=== PATIENT | female | born 1990 | race Caucasian/White ===

== ENCOUNTER 2021-08-02 14:38 | Inpatient (IN) ==
[2021-08-02 16:28] LABS: Mean Corpuscular Hgb Conc 33.1 g/dL (32-36); Mean Platelet Volume 9.1 fL (7.4-10.4); Platelet Count 345 K/uL (130-400)
[2021-08-02] MEDS ORDERED: SODIUM CHLORIDE 0.9% 1000ML 500 ML IV ONE (16:49)
[2021-08-02 16:52] LABS: ALC (manual) 2.82 K/uL (1.2-3.4); ANC (manual) 4.37 K/uL (1.4-6.5); Basophils # (manual) 0.14 K/uL (0-0.2); Basophils % (manual) 1.7 %; Eosinophils # (manual) 0.21 K/uL (0-0.5); Eosinophils % (manual) 2.6 %; Hematocrit (blood only) 47.8 % (37-47); Hemoglobin 15.8 g/dL (12.0-16.0); Lymphocytes # (manual) 1.77 K/uL (1.2-3.4); Lymphocytes % (manual) 21.4 %; Mean Corpuscular Hemoglobin 29.7 pg (25-34); Mean Corpuscular Volume 89.8 fL (80-100); Monocytes % (manual) 8.5 %; Neutrophils # (manual) 4.37 K/uL (1.4-6.5); RBC Morphology Unremarkable; RDW Coefficient of Variation 13.2 % (11.5-14.5); RDW Standard Deviation 43.6 fL (36.4-46.3); Reactive Lymphocytes # (manual) 1.06 K/uL; Reactive Lymphocytes % (manual) 12.8 %; Red Blood Count 5.32 M/uL (4.2-5.4); White Blood Count 8.25 K/uL (4.8-10.8)
[2021-08-02 16:54] LABS: Albumin Globulin Ratio 1.2 (0.9-2); Albumin Level 4.1 gm/dl (3.4-5.0); BUN Creatinine Ratio 13.1 (10-20); Bilirubin,Total 0.7 mg/dl (0.2-1.0); Calcium 9.6 mg/dl (8.5-10.1); Creatinine Clr Calc Pharmacy 34.5 ml/min; Est GFR (African American) 107.3 ml/min; Est GFR (Non-African American) 92.6 ml/min; Globulin 3.3 gm/dl (2.5-4.0); Potassium 3.4 mmol/L (3.5-5.1); Total Protein 7.4 gm/dl (6.0-8.3)
--- NOTE | 2021-08-02 16:54 | XRay Report ---
KUB CLINICAL HISTORY: constipation COMPARISON STUDY: None. FINDINGS: An 8 mm right upper quadrant calcification is present. Bowel gas pattern is normal. Moderat e amount stool within the rectum is noted. There is a mild amount stool within the colon. Incidental note is made of severe scoliosis of the visualized spine. 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 IMPRESSION: 1. No evidence for a bowel obstruction. 2. Moderate amount of stool within the rectum. Mild amount stool within the colon. 3. 8 mm right upper quadrant calcification. This could reflect a gallstone within the left likely mili al calculus. 4. Scoliosis and right dislocation of the right hip. ACT 112: Negative or not required by law. Electronically signed by: Kalpesh Lester M.D. 08/02/2021 4:52 PM
[2021-08-02] MEDS ORDERED: D5W AND 1/2NSS 1,000 ML IV SCH (17:30)
[2021-08-02 17:36] LABS: Appearance Urine Cloudy (Clear); Bacteria Urine Automated Negative (Negative); Blood Urine 3+ (Negative); Color Urine Dark Yellow; Epithelial Cell Urine Auto >30 /lpf (0-5); Glucose Urine UA Negative (Negative); Ketones Urine Trace (Negative); Leukocyte Esterase Urine Negative (Negative); Nitrite Urine Negative (Negative); Protein Urine 2+ (Negative); Specific Gravity Urine 1.026 (1.000-1.030); Urobilinogen Urine Negative (Negative)
[2021-08-02 17:37] LABS: Bilirubin Urine 1+ (Negative)
--- NOTE | 2021-08-02 17:49 | Emergency Department Note ---
Impression & Plan Acute hypernatremia, Cerebral palsy, Hematuria, Nephrolithiasis ED Provider Note INFORMANT: Mother ED PROVIDER(S): Shawn Hickman MD CHIEF COMPLAINT: Constipation PLAN: Disposition: Admitted Condition: Good Outpatient prescription management: none Referral: None MEDICAL DECISION MAKING: Patient presented to the emergency department because of concerns about constipation or possible dehydration. Mom states the child was irritable. Physical examination was performed. Vital signs stable. Her CP makes history and physical difficult. The patient did not appear to have any peritoneal findings on examination. A work-up was initiated. A KUB was performed. Moderate stool noted but a large calcification was noted in the right upper quadrant. A urinalysis was performed. Blood work obtained. The patient was hypernatremic with a sodium of 151. The patient's urinalysis did show blood. CT imaging was ordered. Given the patient's hyponatremia I did discuss this with the ED pharmacist. We did calculate the patient's fluid requirement and to slowly drop her sodium she was given D5 half-normal saline. CT imaging did show a large stone in the right renal pelvis without hydronephrosis. This may be explaining her irritability and the blood in the urine. Further management in the hospital will be necessary. [facility] Patient was evaluated in the ER and admitted for further management. Triage Nursing notes reviewed and agree them. Vital Signs: reviewed and remarkable for no significant abnormalities Differential diagnosis: Infection, dehydration, metabolic abnormality, hypo/hyperglycemia, electrolyte disturbance, anemia, constipation, toxicologic, neurologic, as well as other pathologies. Diagnostics interpreted by me: ECG: none Cardiac Monitoring: none Imaging studies: KUB and CT as above. HPI: The patient is a 30 year old female with history of CP who presents to the Emergency Room with her mother because of being irritable. She has had decreased bowel movements over the last several days. Patient is nonverbal. Mother states her mood waxes and wanes. She has been trying to orally hydrate her and feed her. She has been in consultation with her primary for feeding tube placement. Mother denies any fevers or cough. No respiratory difficulty. There is a fluid going around the family but the patient has not exhibited any other symptoms. History is limited secondary to patient's severe CP. ROS: See above HPI for pertinent positives & negatives. ROS limited secondary to CP. PAST MEDICAL HISTORY:See Below , CP PAST SURGICAL HISTORY:See Below, FAMILY HISTORY:See Below SOCIAL HISTORY:See Below, lives with family HOME MEDICATIONS:See Below ALLERGIES:See Below VITALS:See Below PHYSICAL EXAMINATION: GENERAL: Awake, alert, nontoxic-appearing, in no distress HENT: atraumatic. Oropharynx unremarkable except for dry mucous membranes and poor dentition EYES: Normal conjunctiva. Sclera non-icteric. NECK: Inspection normal. Non-tender. Supple. No nuchal rigidity. FROM. No masses. RESPIRATORY: Clear to auscultation. No wheezes. No rales. Normal respiratory effort. CARDIAC: Borderline tachycardic rate. Normal rhythm. No murmurs. No rubs. Extremities warm and well perfused. Pulses equal. No JVD. GI: Soft, non-distended. No apparent tenderness to palpation. No rebound or guarding. No masses. RECTAL: Deferred. MUSCULOSKELETAL: Atraumatic. Contractures of the upper extremities noted. Generalized muscular atrophy. No obvious CVA tenderness. LOWER EXTREMITIES: Calves are equal size bilaterally and non-tender. No edema. No discoloration. NEURO: CP sensorium. Nonverbal. Does not follow commands. SKIN: No rash or jaundice noted. Shawn Hickman MD Past Med/Surg History Medical History (Updated 08/02/21 @ 21:49 by Shawn Hickman MD) Cerebral palsy non-verbal Cerebral palsy Cyst of neck History of seizures hx years ago/controlled without anticonvulsants Surgical History History of hip surgery LEFT Lazy eye repair Social History Smoking Status: Never smoker Second Hand Exposure: No; Hx Alcohol Use: No Hx Substance Use: No Preferred Language: Congolese Communication Ability: Impaired Aircraft Mechanic Required: No Beliefs That Will Affect Care: None marital status: Single Current Living Situation: Family current occupational status: disabled Feels Safe at Home: Yes Assistive Devices: Wheelchair Allergies Allergies Allergy/AdvReac Type Severity Reaction Status Date / Time No Known Allergies Allergy Verified 08/02/21 15:38 Home Meds Home Medications Medication Instructions Recorded Confirmed multivitamin (Daily Multi-Vitamin) 1 tab PO DAILY 03/25/19 08/02/21 Previous Rx's Medication Instructions Recorded Wheelchair (Manual) #1 ea 02/03/21 Results & Data (ED) Vital Signs Vital Signs - 24 hr 08/02/21 14:46 08/02/21 16:39 08/02/21 18:37 Temperature 36.6 C Temperature Source Temporal Artery Scan Pulse Rate 98 H Pulse Rate [Left Finger] 83 Pulse Rhythm [Left Finger] Regular Respiratory Rate 22 15 18 Respiratory Effort / Characteristics Non-Labored Blood Pressure [Left Arm] 97/65 L 97/65 L Blood Pressure Mean [Left Arm] 75 75 Pulse Oximetry 97 96 Oxygen Delivery Method Room Air Room Air Sepsis Recent Fever Within 48 Hours No Sepsis New/Unexplained Change in Mental Status N/A Sepsis Action Taken by Nursing No Action Required 08/02/21 20:00 Temperature Temperature Source Pulse Rate Pulse Rate [Left Finger] 81 Pulse Rhythm [Left Finger] Respiratory Rate 17 Respiratory Effort / Characteristics Non-Labored Blood Pressure [Left Arm] 106/73 Blood Pressure Mean [Left Arm] 84 Pulse Oximetry 96 Oxygen Delivery Method Room Air Sepsis Recent Fever Within 48 Hours Sepsis New/Unexplained Change in Mental Status Sepsis Action Taken by Nursing Laboratory Data Result diagrams: 08/02/21 16:17 08/02/21 16:17 Lab Results 08/02/21 08/02/21 08/02/21 Range/Units 16:17 16:17 16:20 WBC 8.25 (4.8-10.8) K/uL RBC 5.32 (4.2-5.4) M/uL Hgb 15.8 (12.0-16.0) g/dL Hct 47.8 H (37-47) % MCV 89.8 (80-100) fL MCH 29.7 (25-34) pg MCHC 33.1 (32-36) g/dL RDW Std Deviation 43.6 (36.4-46.3) fL RDW Coeff of Mat 13.2 (11.5-14.5) % Plt Count 345 (130-400) K/uL MPV 9.1 (7.4-10.4) fL Neutrophils % (Manual) 53.0 % Lymphocytes % (Manual) 21.4 % Reactive Lymphs % (Man) 12.8 % Monocytes % (Manual) 8.5 % Eosinophils % (Manual) 2.6 % Basophils % (Manual) 1.7 % Neutrophils # (Manual) 4.37 (1.4-6.5) K/uL Total Absolute Neuts 4.37 (1.4-6.5) K/uL Lymphocytes # (Manual) 1.77 (1.2-3.4) K/uL Reactive Lymphs # 1.06 K/uL Total Abs Lymphocytes 2.82 (1.2-3.4) K/uL Monocytes # (Manual) 0.70 H (0.11-0.59) K/uL Eosinophils # (Manual) 0.21 (0-0.5) K/uL Basophils # (Manual) 0.14 (0-0.2) K/uL RBC Morphology Unremarkable Sodium 151 H (136-145) mmol/L Potassium 3.4 L (3.5-5.1) mmol/L Chloride 110 H (98-107) mmol/L Carbon Dioxide 34 H (21-32) mmol/L Anion Gap 7 (3-11) BUN 11 (6-23) mg/dl Creatinine 0.84 (0.6-1.2) mg/dl Est Cr Clr Drug Dosing 34.5 ml/min Est GFR ( Amer) 107.3 ml/min Est GFR (Non-Af Amer) 92.6 ml/min BUN/Creatinine Ratio 13.1 (10-20) Glucose 86 (70-99(Fasting)) mg/dl Calcium 9.6 (8.5-10.1) mg/dl Total Bilirubin 0.7 (0.2-1.0) mg/dl AST 27 (13-39) U/L ALT 28 (7-52) U/L Alkaline Phosphatase 80 (34-104) U/L Total Protein 7.4 (6.0-8.3) gm/dl Albumin 4.1 (3.4-5.0) gm/dl Globulin 3.3 (2.5-4.0) gm/dl Albumin/Globulin Ratio 1.2 (0.9-2) Urine Color Urine Appearance (Clear) Urine pH (4.5-7.5) Ur Specific Sharon (1.000-1.030) Urine Protein (Negative) Urine Glucose (UA) (Negative) Urine Ketones (Negative) Urine Blood (Negative) Urine Nitrite (Negative) Urine Bilirubin (Negative) Urine Urobilinogen (Negative) Ur Leukocyte Esterase (Negative) Urine WBC (Auto) (0-5) /hpf Urine RBC (Auto) (0-4) /hpf U Hyaline Cast (Auto) (0-5) /lpf U Epithel Cells (Auto) (0-5) /lpf Urine Bacteria (Auto) (Negative) SARS-CoV-2, RNA, NAAT NEGATIVE (NEGATIVE) 08/02/21 Range/Units 17:24 WBC (4.8-10.8) K/uL RBC (4.2-5.4) M/uL Hgb (12.0-16.0) g/dL Hct (37-47) % MCV (80-100) fL MCH (25-34) pg MCHC (32-36) g/dL RDW Std Deviation (36.4-46.3) fL RDW Coeff of Mat (11.5-14.5) % Plt Count (130-400) K/uL MPV (7.4-10.4) fL Neutrophils % (Manual) % Lymphocytes % (Manual) % Reactive Lymphs % (Man) % Monocytes % (Manual) % Eosinophils % (Manual) % Basophils % (Manual) % Neutrophils # (Manual) (1.4-6.5) K/uL Total Absolute Neuts (1.4-6.5) K/uL Lymphocytes # (Manual) (1.2-3.4) K/uL Reactive Lymphs # K/uL Total Abs Lymphocytes (1.2-3.4) K/uL Monocytes # (Manual) (0.11-0.59) K/uL Eosinophils # (Manual) (0-0.5) K/uL Basophils # (Manual) (0-0.2) K/uL RBC Morphology Sodium (136-145) mmol/L Potassium (3.5-5.1) mmol/L Chloride (98-107) mmol/L Carbon Dioxide (21-32) mmol/L Anion Gap (3-11) BUN (6-23) mg/dl Creatinine (0.6-1.2) mg/dl Est Cr Clr Drug Dosing ml/min Est GFR ( Amer) ml/min Est GFR (Non-Af Amer) ml/min BUN/Creatinine Ratio (10-20) Glucose (70-99(Fasting)) mg/dl Calcium (8.5-10.1) mg/dl Total Bilirubin (0.2-1.0) mg/dl AST (13-39) U/L ALT (7-52) U/L Alkaline Phosphatase (34-104) U/L Total Protein (6.0-8.3) gm/dl Albumin (3.4-5.0) gm/dl Globulin (2.5-4.0) gm/dl Albumin/Globulin Ratio (0.9-2) Urine Color Dark Yellow Urine Appearance Cloudy A (Clear) Urine pH 6.0 (4.5-7.5) Ur Specific Sharon 1.026 (1.000-1.030) Urine Protein 2+ H (Negative) Urine Glucose (UA) Negative (Negative) Urine Ketones Trace H (Negative) Urine Blood 3+ H (Negative) Urine Nitrite Negative (Negative) Urine Bilirubin 1+ H (Negative) Urine Urobilinogen Negative (Negative) Ur Leukocyte Esterase Negative (Negative) Urine WBC (Auto) 10-30 H (0-5) /hpf Urine RBC (Auto) 10-30 H (0-4) /hpf U Hyaline Cast (Auto) 1-5 (0-5) /lpf U Epithel Cells (Auto) >30 H (0-5) /lpf Urine Bacteria (Auto) Negative (Negative) SARS-CoV-2, RNA, NAAT (NEGATIVE) Administered Medications Dextrose/Sodium Chloride (D5w And 1/2nss) 1,000 mls @ 85 mls/hr IV .[id number] [id number] Stop: 08/02/21 23:00 Last Admin: 08/02/21 17:33 Dose: 85 mls/hr Documented by: [id number] Discontinued Medications Sodium Chloride (Nss 1000ml) 500 mls @ 999 mls/hr IV .Q31M ONE Stop: 08/02/21 17:19 Last Admin: 08/02/21 17:33 Dose: Not Given Documented by: [id number] Imaging Data Radiologist's Impression: KUB X-Ray 08/02/21 15:36 KUB CLINICAL HISTORY: constipation COMPARISON STUDY: None. FINDINGS: An 8 mm right upper quadrant calcification is present. Bowel gas pattern is normal. Moderate amount stool within the rectum is noted. There is a mild amount stool within the colon. Incidental note is made of severe scoliosis of the visualized spine. There is chronic dislocation of the right hip with deformity of the right femoral head. IMPRESSION: 1. No evidence for a bowel obstruction. 2. Moderate amount of stool within the rectum. Mild amount stool within the colon. 3. 8 mm right upper quadrant calcification. This could reflect a gallstone within the left likely renal calculus. 4. Scoliosis and right dislocation of the right hip. ACT 112: Negative or not required by law. Electronically signed by: Kalpesh Lester M.D. 08/02/2021 4:52 PM Abdomen/Pelvis CT 08/02/21 17:49 CT OF THE ABDOMEN AND PELVIS WITHOUT CONTRAST CLINICAL HISTORY: possible right stone. Hematuria. hx of CP COMPARISON STUDY: KUB performed earlier today. TECHNIQUE: Axial images of the abdomen and pelvis were obtained without IV contrast. Images were reviewed in the axial, sagittal, and coronal planes. Automated exposure control was utilized for the study. A dose lowering technique was utilized adhering to the principles of ALARA. FINDINGS: Note is made of mild airspace opacities within the left lower lobe. No pneumatosis, free air or portal venous gas is present. Evaluation of the abdomen and pelvis is suboptimal given difficulty positioning. Chronic dislocation of the right hip is noted as well as scoliosis, partially imaged on this examination. No pneumatosis, free air or portal venous gas is present. Unenhanced images of liver, spleen, adrenal glands and pancreas are unremarkable. There is no hydronephrosis. Note is made of a 9 mm calculus within the right renal pelvis. There are no additional urinary calculi. There is no evidence for a bowel obstruction. The appendix is normal. Moderate amount of stool within the colon and rectum is present. There is no ascites. There is no lymphadenopathy. A few water attenuation left renal lesions are suboptimally assessed on this unenhanced exam but probably reflect cysts. IMPRESSION: 1. 9 mm right renal pelvis calculus. No ureteral calculi or hydronephrosis. 2. No bowel obstruction. Normal appendix. Moderate amount of stool within the colon and rectum. 3. Chronic dislocation of the right hip and thoracolumbar spine scoliosis, partially imaged. ACT 112: Negative or not required by law. Electronically signed by: Kalpesh Lester M.D. 08/02/2021 7:20 PM Discharge Plan Visit Data Chief Complaint: Constipation Stated Complaint: LIQUID DIET, NOT EATING WELL, CONSTIPATED ED Provider: Shawn Hickman Discharge Problem: Acute hypernatremia, Cerebral palsy, Hematuria, Nephrolithiasis Forms Stand Alone Forms: [employer] Prescriptions Prescriptions: No Action (DME) Wheelchair (Manual) Device See Rx Instructions .Route Qty: 1 RF: 0 multivitamin [Daily Multi-Vitamin] tablet 1 tab PO DAILY RF: 0 Referrals Referrals: Claudia Fair PA-C [Primary Care Provider] -
--- NOTE | 2021-08-02 19:21 | CT Scan Report ---
CT OF THE ABDOMEN AND PELVIS WITHOUT CONTRAST CLINICAL HISTORY: possible right stone. Hematuria. hx of CP COMPARISON STUDY: KUB performed earlier today. TECHNIQUE: Axial images of the abdomen and pelvis were obtained without IV contrast. Images were revi ewed in the axial, sagittal, and coronal planes. Automated exposure control was utilized for the abbie dy. A dose lowering technique was utilized adhering to the principles of ALARA. FINDINGS: Note is made of mild airspace opacities within the left lower lobe. No pneumatosis, free ai r or portal venous gas is present. Evaluation of the abdomen and pelvis is suboptimal given difficult y positioning. Chronic dislocation of the right hip is noted as well as scoliosis, partially imaged o n this examination. No pneumatosis, free air or portal venous gas is present. Unenhanced images of li aiden, spleen, adrenal glands and pancreas are unremarkable. There is no hydronephrosis. Note is made o f a 9 mm calculus within the right renal pelvis. There are no additional urinary calculi. There is no evidence for a bowel obstruction. The appendix is normal. Moderate amount of stool within the colon and rectum is present. There is no ascites. There is no lymphadenopathy. A few water attenuation left renal lesions are suboptimally assessed on this unenhanced exam but probably reflect cysts. IMPRESSION: 1. 9 mm right renal pelvis calculus. No ureteral calculi or hydronephrosis. 2. No bowel obstruction. Normal appendix. Moderate amount of stool within the colon and rectum. 3. Chronic dislocation of the right hip and thoracolumbar spine scoliosis, partially imaged. ACT 112: Negative or not required by law. Electronically signed by: Kalpesh Lester M.D. 08/02/2021 7:20 PM
--- NOTE | 2021-08-02 19:34 | History & Physical Report ---
Date of Service August 02, 2021 Assessment & Plan (1) Constipation: Plan: 30 y/o F w/ cerebral palsy (nonverbal) and not other PMhx who presents w/ a week of irritability and decreased PO intake likely secondary to chronic constipation, in the context of chronic malnutrition. Irritability x 1 week (mostly minimal appetite) secondary to constipation (moderate stool burden on CT) vs 9mm nephrolithiasis. There is lower suspicion for symptoms related to nephrolithiasis as imaging does not show hydronephrosis or ureteral stone. Patient's microscopic hematuria more likely from straight cath insertion as multiple attempts were required. - Dulcolax suppository x1. If needed, consider lactulose, senna, and saline enema. Proactive/strong bowel regimen approach recommended while inpatient as likely contributing to patient's discomfort. - Other differentials of malaise considered. UA w/ pyuria, but no obvious urinary symptoms; no abx indicated. CT abd mentioned mild airspace opacities within the left lower lobe. Patient does have higher than average aspiration risk, but in context of clear lungs and no hypoxia, aspiration pneumonitis lower on differential. - GI consult placed for evaluation of possible G tube. NPO after midnight. Otherwise, diet will be Boost shakes only and any other liquids given (e.g. for meds) should be nectar consistency. - If suspicion for symptomatic nephrolithiasis higher, consider urology consult. (2) Hypernatremia: Plan: 151 Na at admission. Likely represents free water deficit from decreased PO intake. D5 1/2 NSS at slightly < recommended rate to correct <0.5/hour. Follow BMP. (3) Cerebral palsy: Plan: Appears at baseline. Per mother, does not follow neurology and no recent hx of seizures. Not on medications for cerebral palsy. (4) Malnutrition: Plan: Per mother, 2.5 lb wt loss in past year. Overall, there has been concern about PO intake. In outpatient setting, discussion of consideration of tube feeds ongo ing, outpatient GI consult had been placed. Can Piler consulted to assess nutritional needs. (5) Poor dentition: Plan: Encourage dental f/u upon discharge from hospital. (6) Hypokalemia: Plan: Replete. Follow BMP. Plan: FEN: NPO. D5 1/2 NSS at 75/hr. When diet resumes, Boost shakes only. Dulce consistency for all other fluids. Aspiration precautions. code: Conditional: DNI. Allow CPR, defib, other ACLS meds. I had detailed discussion w/ mother regarding code status. ppx: SCDs only. Defer chemoppx in setting of lower risk and low body weight. dispo: med/surg ED hold History of Present Illness Chief Complaint: constipation and poor appetite Primary Care Provider: Claudia Fair PA-C 30 y/o F w/ cerebral palsy (nonverbal) and not other PMhx who presents for irritability x 1 week (mostly minimal appetite). This was worse on 07/31/21 (generally appeared uncomfortably. less energy, fussy). She has had chronic constipation issue, somewhat worsened as did not pass a large BM (passed 3 smaller BMs) even after dulcolax and saline enema. This was in contrast to past where patient had better success with these treatments. Patient is feeling better today. She was brought in today because of the week of persistent concerns mentioned above. Family had flu-like symptoms. Patient has not had covid vaccine. Per 08/02/21 PCP note, referred to outpatient GI for discussion of potential G tube in future should patient need it. Feeds via liquids only, mainly using bottled tube feed formulations. 2.5 lb wt loss in past year per mother. Cerebral palsy is stable, no recent seizures in years and not on any anticonvulsants. HPI limited by patient's baseline nonverbal status. Hx obtained from mother. Patient's covid test was negative. Allergies Allergy/AdvReac Type Severity Reaction Status Date / Time No Known Allergies Allergy Verified 08/02/21 15:38 Home Medications Medication Instructions Recorded Confirmed Type multivitamin (Daily Multi-Vitamin) 1 tab PO DAILY 03/25/19 08/02/21 History Wheelchair (Manual) #1 ea 02/03/21 07/26/21 Rx Past Med/Surg History Medical History (Updated 08/03/21 @ 01:03 by Semaj Hicks MD) Cerebral palsy non-verbal Cerebral palsy Cyst of neck History of seizures hx years ago/controlled without anticonvulsants Surgical History History of hip surgery LEFT Lazy eye repair Social History Smoking Status: Never smoker Second Hand Exposure: No; Do You Dip or Chew Tobacco: No; Hx Alcohol Use: No Hx Substance Use: No Preferred Language: Kazakh Communication Ability: Unable Registered Medical Assistant Required: No Beliefs That Will Affect Care: None marital status: Single Current Living Situation: Parent and Family current occupational status: disabled Other Information That Helps Us Care for You: No Feels Safe at Home: Yes Safety Concerns: Feels Safe At This Time Assistive Devices: Wheelchair Review of Systems Review of Systems: Unobtainable due to cognitive status (Baseline. Has cerebral palsy and is nonverbal. + some sinus/chest congestion but no cough. Mother denies other ROS that are not mentioned in the HPI.) Physical Exam Physical Exam: General: Was sleeping initially, but is alert. NAD. HEENT: Atraumatic, normocephalic. EOMI Pulm: CTAB anteriorly. Limited exam, no obvious adventitious sounds posteriorly. Some transmitted upper airway mucous, heard at neck. -wheezes, -rales, -rhonchi. No respiratory distress. Cardiac: RRR, -mrg. No LE edema. Abdominal: Nondistended, soft. She did wince briefly when palpating RLQ. No TTP on repeat exam. +BS. No R CVA ttp. Integ: Warm, dry, intact. Results & Data Results & Data ([facility]) Vital Signs (Past 12 Hours) Vital Signs slightly soft BPs. continue IV fluids. Temp Pulse Pulse Resp BP Pulse Ox 08/02/21 18:37 18 97/65 L 08/02/21 16:39 83 15 97/65 L 96 08/02/21 14:46 36.6 C 98 H 22 97 Laboratory Results wbc 8.25, stable. Hb 15.8, stable. K 3.4. Na 151. UA cloudy, 3+ blood, 1+ bili, 10-30 wbc, >30 epithelial cells. 08/02/21 16:17 08/02/21 16:17 Cardiac Enzymes 08/02/21 Range/Units 16:17 AST 27 (13-39) U/L CBC 08/02/21 Range/Units 16:17 WBC 8.25 (4.8-10.8) K/uL RBC 5.32 (4.2-5.4) M/uL Hgb 15.8 (12.0-16.0) g/dL Hct 47.8 H (37-47) % Plt Count 345 (130-400) K/uL Comprehensive Metabolic Panel 08/02/21 Range/Units 16:17 Sodium 151 H (136-145) mmol/L Potassium 3.4 L (3.5-5.1) mmol/L Chloride 110 H (98-107) mmol/L Carbon Dioxide 34 H (21-32) mmol/L BUN 11 (6-23) mg/dl Creatinine 0.84 (0.6-1.2) mg/dl Glucose 86 (70-99(Fasting)) mg/dl Calcium 9.6 (8.5-10.1) mg/dl AST 27 (13-39) U/L ALT 28 (7-52) U/L Alkaline Phosphatase 80 (34-104) U/L Total Protein 7.4 (6.0-8.3) gm/dl Albumin 4.1 (3.4-5.0) gm/dl Intake and Output 08/02/21 08/02/21 08/02/21 06:59 14:59 22:59 Other: Weight 23.4 kg Weight Measurement Method Built in [facility] Patient Weight 08/03/21 06:59 Weight 23.4 kg Diagnostic Findings KUB X-Ray 08/02/21 15:36 KUB CLINICAL HISTORY: constipation COMPARISON STUDY: None. FINDINGS: An 8 mm right upper quadrant calcification is present. Bowel gas pattern is normal. Moderate amount stool within the rectum is noted. There is a mild amount stool within the colon. Incidental note is made of severe scoliosis of the visualized spine. There is chronic dislocation of the right hip with deformity of the right femoral head. IMPRESSION: 1. No evidence for a bowel obstruction. 2. Moderate amount of stool within the rectum. Mild amount stool within the colon. 3. 8 mm right upper quadrant calcification. This could reflect a gallstone within the left likely renal calculus. 4. Scoliosis and right dislocation of the right hip. ACT 112: Negative or not required by law. Electronically signed by: Kalpesh Lester M.D. 08/02/2021 4:52 PM Abdomen/Pelvis CT 08/02/21 17:49 CT OF THE ABDOMEN AND PELVIS WITHOUT CONTRAST CLINICAL HISTORY: possible right stone. Hematuria. hx of CP COMPARISON STUDY: KUB performed earlier today. TECHNIQUE: Axial images of the abdomen and pelvis were obtained without IV contrast. Images were reviewed in the axial, sagittal, and coronal planes. Automated exposure control was utilized for the study. A dose lowering bruce hnique was utilized adhering to the principles of ALARA. FINDINGS: Note is made of mild airspace opacities within the left lower lobe. No pneumatosis, free air or portal venous gas is present. Evaluation of the abdomen and pelvis is suboptimal given difficulty positioning. Chronic dislocation of the right hip is noted as well as scoliosis, partially imaged on this examination. No pneumatosis, free air or portal venous gas is present. Unenhanced images of liver, spleen, adrenal glands and pancreas are unremarkable. There is no hydronephrosis. Note is made of a 9 mm calculus within the right renal pelvis. There are no additional urinary calculi. There is no evidence for a bowel obstruction. The appendix is normal. Moderate amount of stool within the colon and rectum is present. There is no ascites. There is no lymphadenopathy. A few water attenuation left renal lesions are suboptimally assessed on this unenhanced exam but probably reflect cysts. IMPRESSION: 1. 9 mm right renal pelvis calculus. No ureteral calculi or hydronephrosis. 2. No bowel obstruction. Normal appendix. Moderate amount of stool within the colon and rectum. 3. Chronic dislocation of the right hip and thoracolumbar spine scoliosis, partially imaged. ACT 112: Negative or not required by law. Electronically signed by: Kalpesh Lester M.D. 08/02/2021 7:20 PM ECG Additional Comments: No ecg obtained this admission. Code Status & VTE Plan Code Status conditional: DNI VTE Prophylaxis Plan VTE Prophylaxis will be ordered: Yes Supervising Physician Co-Signing Physician Notes Patient seen and examined, chart reviewed, case discussed with Dr. Hicks and I agree with the assessment and plan as outlined above. In brief, patient is a 30yo female with CP presenting with her mother with complaint of poor feeding, irritability and constipation. Mother feeds patient [email or web address] ankur but patient has not been taking as much oral ?need for feeding tube placement On exam patient is afebrile, HD stable, sleeping Skin - intact HEENT - dry mm Heart- +S1/S2, regular Lungs -CTA Abd - +BS, soft, NT/ND Ext - no edema, flexion contractures of UE and LE bilaterally Labs and images reviewed Assessment/Plan -IVF, oral nutrition as tolerated with assistance from patient's mother -GI consultation appreciated re: PEG tube placement -Slow Na correction with D5 1/2NSS -Remainder as above Resident Activity Tracking Resident Involvement: Resident Care Provided Care Provided: Adult Hospital Medicine
[2021-08-03] MEDS ORDERED: D5W AND 1/2NSS 1,000 ML IV SCH (00:47)
[2021-08-03] MEDS ORDERED: ONDANSETRON INJ 2 MG/ML 2 ML VIAL IV PRN (00:47)
[2021-08-03] MEDS: POTASSIUM CHLORIDE / WTR 10 MEQ/100 ML PLCT IV SCH ×2 (01:36→03:02)
[2021-08-03] MEDS ORDERED: bisacodyL 10 MG SUPP PR ONE (05:00)
--- NOTE | 2021-08-03 05:48 | Billing Data ---
Date of Service August 02, 2021 Coding Level of Care Code 88137 Initial Inpt Care Lvl 2
[2021-08-03 08:18] LABS: Basophils # (auto) 0.04 K/uL (0-0.2); Basophils % (auto) 0.6 %; Eosinophils # (auto) 0.33 K/uL (0-0.5); Hemoglobin 13.6 g/dL (12.0-16.0); Immature Granulocytes # (auto) 0.01 K/uL (0.00-0.02); Immature Granulocytes % (auto) 0.2 %; Lymphocytes # (auto) 3.02 K/uL (1.2-3.4); Lymphocytes % (auto) 45.5 %; Mean Corpuscular Hemoglobin 29.9 pg (25-34); Mean Corpuscular Hgb Conc 33.2 g/dL (32-36); Mean Corpuscular Volume 90.1 fL (80-100); Mean Platelet Volume 9.2 fL (7.4-10.4); Monocytes # (auto) 0.79 K/uL (0.11-0.59); Monocytes % (auto) 11.9 %; Neutrophils # (auto) 2.45 K/uL (1.4-6.5); Neutrophils % (auto) 36.8 %; Platelet Count 283 K/uL (130-400); RDW Coefficient of Variation 13.1 % (11.5-14.5); RDW Standard Deviation 42.7 fL (36.4-46.3); Red Blood Count 4.55 M/uL (4.2-5.4); White Blood Count 6.64 K/uL (4.8-10.8)
[2021-08-03 08:40] LABS: BUN Creatinine Ratio 14.9 (10-20); Calcium 8.2 mg/dl (8.5-10.1); Creatinine Clr Calc Pharmacy 43.2 ml/min; Est GFR (African American) 135.8 ml/min; Est GFR (Non-African American) 117.1 ml/min; Magnesium 1.8 mg/dl (1.7-2.4); Potassium 3.5 mmol/L (3.5-5.1)
[2021-08-03] MEDS ORDERED: POTASSIUM CHLORIDE 20 MEQ in LACTATED RINGER'S 1,000 ML IV SCH (10:00)
--- NOTE | 2021-08-03 10:50 | Hospitalist Progress Note ---
Date of Service August 03, 2021 Assessment & Plan (1) Malnutrition: Plan: 30 yo F Hx cerebral palsy, chronic malnutrition, constipation admitted for increased irritability and concern for worsening nutritional status. Malnutrition: Chronic issue, with chiefly liquid calories at home. Currently uses [employer] 1-1.5 cartons/day with 1 homemade milkshake (not enough fiber, fluids). Dietary onboard to ensure appropriate calorie intake, appreciate recommendations: Will transition to [employer] 2 cartons/day (total 660kcal, 32g protein, 10g fiber). Will add prune juice 4oz in 4oz water with homemade honey/maple syrup to thicken it. Thiamine 100mg IV BID while admitted. Repeat BMP, Phos, Mg in AM for refeeding labs. GI consulted and appreciate recommendations: Given malrotated torso and small abdomen concern for coiling of feeding tube in stomach. No feeding tube at this time; if frequent admissions for similar complaints will need evaluation for possible PEJ. Hypernatremia: Admitted with Na of 151, dark urine, poor fluid intake. Received D5 1/2NSS for several hours, with repeat Na of 142. Fluids transitioned to LR at 60cc/hr. Repeat BMP in AM. Constipation: Chronic, BMs q3 days. CTAP with evidence of moderate amount of stool within colon. Started Dulcolax while admitted, to continue when discharged. Goal of one soft formed BM daily. Code Status: Conditional Code; no intubation, other interventions okay FEN: LR at 60cc/hr with KCl 20meq within DVT ppx: Heparin 5000u SQ q12h Dispo: Med/Surg (2) Hypernatremia: (3) Hypokalemia: (4) Constipation: (5) Nephrolithiasis: Admission and Anticipated Discharge Date Admission Date: August 02, 2021 Supervising Physician Co-Signing Physician Notes Patient seen and examined with PGY-3 Dr. Brenner. Agree with history, exam findings, assessment and plan of care as outlined. In brief, Aletha is a 30 year old female with history of CP, seizure disorder, chronic right hip dislocation admitted with constipation and hypernatremia. Today, she is seen with her mother at the bedside. Mom providers all history as Aletha is non-verbal. Per mom, Aletha is looking a little better today compared to yesterday. VS and nursing notes reviewed. Very thin, not fussy and easily consoled by mom. Heart with regular rate and rhythm. Abdomen is soft, nontender, although does fuss a bit with palpation of the RLQ and LLQ. Labs and imaging reviewed. 1. Constipation. CT with moderate stool burden. Start daily Colace. Prune juice. 2. Hypernatremia. Due to dehydration. Given D5 NSS and sodium level has normalized from 151 to 142. 3. Malnutrition. Nutrition consulted. Appreciate recommendations for protein-calorie intake. GI also consulted for evaluation of PEG as a more fdc feeding alternativemay not be a good candidate for endoscopic placement due to small stature and malrotation of the torso. Would be able to continue to explore this as an outpatient with PCPgeneral surgery or IR. 4. Hypokalemia. Improved. Up to 3.4. Dispo: likely discharge home tomorrow. Subjective Patient without acute events overnight. Per mother appears to be more like herself today, happier, less irritable. Did have a BM overnight. Per mother she gives Hope things such as Miralax and Dulcolax as needed when she has BMs less frequently than every 3 days, which is her typical routine at home. Mother has daughter (Aletha's sister) at home who helps take care of Hope. Review of Systems Review of Systems: patient is nonverbal Physical Exam Constitutional: no acute distress ENMT: no dentition on upper jaw Respiratory: normal respiratory effort, lungs clear to auscultation Cardiovascular: Rate/Rhythm: regular rate and regular rhythm Gastrointestinal (Abdomen): normal bowel sounds, soft, nontender, no hepatosplenomegaly Musculoskeletal: malrotation of torso Psychiatric: Orientation: alert Results & Data Results & Data ([facility]) Vital Signs (Past 12 Hours) Vital Signs Temp Pulse Pulse Resp BP BP Pulse Ox 08/03/21 00:57 36.1 C L 76 22 121/82 99 08/03/21 00:47 36.1 C L 76 22 121/82 99 08/03/21 00:23 61 16 92/62 L 91 08/02/21 23:33 61 16 93/65 L 92 08/02/21 22:00 81 15 89/62 L 98 08/02/21 20:00 81 17 106/73 96 Resident Activity Tracking Resident Involvement: Resident Care Provided Care Provided: Adult [place] [facility]
--- NOTE | 2021-08-03 11:39 | Gastrointestinal Consultation ---
Date of Consultation August 03, 2021 Assessment & Plan (1) Malnutrition: -Agree with obtaining dressing room attendant eval -Ensure daily bowel regimen is ordered for patient -If acute illness is ruled out, and dressing room attendant feels patient's nutritional status would benefit from supplemental feeding, could consider PEG placement, however due to her malrotated torso and small abdomen, this may not be able to be done endoscopically and may be better suited for IR vs surgery. Supervising Physician Co-Signing Physician Notes Agree with GLEN Holland as above Abd: Soft, NT, ND, +BS, Abdominal cavity is small due to small stature of patient and patient is malrotated Await recommendations from Barrel Assembly Inspector Ideally, it would be best for her to continue PO intake if she is able Endoscopic placement of feeding tube may not be possible due to small stature and malrotation Continue supportive care Discussed this with patient's mother, who was at the bedside. History of Present Illness Reason for Consultation: Malnutrition, poor oral intake Attending Physician: Bienvenido Downs, DO History of Present Illness Aletha is a 30 yo female with cerebral palsy. She presented with her mother who provides history for her. She has been increasingly irritable for the past week with minimal appetite. Mother notes that chronic constipation has been an ongoing concern and she has needed to give her Dulcolax. Mother reports that for years she was told that Hope would likely need a feeding tube, but she has managed to defer that as long as possible. Recently she had flu-like symptoms and Mother reports that this worsened her po intake further. Mother reports almost 3 lbs of weight loss in one year. Patient is non-verbal. No other PMH. Mother reports that it does not seem like patient has been in pain. Allergies Allergy/AdvReac Type Severity Reaction Status Date / Time No Known Allergies Allergy Verified 08/02/21 15:38 Home Medications Medication Instructions Recorded Confirmed Type multivitamin (Daily Multi-Vitamin) 1 tab PO DAILY 03/25/19 08/02/21 History Wheelchair (Manual) #1 ea 02/03/21 07/26/21 Rx Patient History Medical History (Updated 08/03/21 @ 01:03 by Semaj Hicks MD) Cerebral palsy non-verbal Cerebral palsy Cyst of neck History of seizures hx years ago/controlled without anticonvulsants Surgical History History of hip surgery LEFT Lazy eye repair Social History Smoking Status: Never smoker Second Hand Exposure: No; Do You Dip or Chew Tobacco: No; Hx Alcohol Use: No Hx Substance Use: No Preferred Language: Czech Communication Ability: Unable Archives Specialist Required: No Beliefs That Will Affect Care: None marital status: Single Current Living Situation: Parent and Family current occupational status: disabled Other Information That Helps Us Care for You: No Feels Safe at Home: Yes Safety Concerns: Feels Safe At This Time Assistive Devices: Wheelchair Review of Systems Review of Systems: Other (patient nonverbal) Physical Exam Constitutional: no acute distress Respiratory: normal respiratory effort, lungs clear to auscultation Cardiovascular: Rate/Rhythm: regular rate Gastrointestinal (Abdomen): normal bowel sounds, soft, nontender, no hepatosplenomegaly Musculoskeletal: malrotation of torso Psychiatric: Orientation: alert Results & Data ([facility]) Vital Signs (Past 12 Hours) Vital Signs Temp Pulse Pulse Resp BP BP BP 08/03/21 08:22 36.8 C 85 17 113/82 08/03/21 00:57 36.1 C L 76 22 121/82 08/03/21 00:47 36.1 C L 76 22 121/82 08/03/21 00:23 61 16 92/62 L Pulse Ox 08/03/21 08:22 96 08/03/21 00:57 99 08/03/21 00:47 99 08/03/21 00:23 91 PG Care Time/CCT Total # of Minutes Spent Total Time Spent with Patient: Total time spent is greater than 50% in coordination of care (as documented) at patient's floor/unit and/or counseling patient: Coding Level of Care Code 74322 Inpt Consult Level 4 Diagnoses Malnutrition E46
[2021-08-03] MEDS: HEPARIN SOD 5,000 UNIT/0.5 ML VIAL SQ SCH (20:23)
[2021-08-03] MEDS: THIAMINE HCL 100 MG in SYRINGE 9 ML IV SCH (20:23)
[2021-08-03] MEDS ORDERED: DOCUSATE SODIUM 100 MG CAP PO SCH (21:00)
[2021-08-04] MEDS ORDERED: bisacodyL 10 MG SUPP PR ONE (05:00)
--- NOTE | 2021-08-04 07:10 | Hospitalist Progress Note ---
Date of Service August 04, 2021 Assessment & Plan (1) Malnutrition: Plan: 30 yo F Hx cerebral palsy, chronic malnutrition, constipation admitted for increased irritability and concern for worsening nutritional status. Malnutrition: Chronic issue, with chiefly liquid calories at home. Currently uses [employer] 1-1.5 cartons/day with 1 homemade milkshake (not enough fiber, fluids). Dietary onboard to ensure appropriate calorie intake, appreciate recommendations: Will transition to [employer] 2 cartons/day (total 660kcal, 32g protein, 10g fiber). Will add prune juice 4oz in 4oz water with homemade honey/maple syrup to thicken it. Thiamine 100mg IV BID while admitted. Repeat BMP, Phos, Mg in AM for refeeding labs. GI consulted and appreciate recommendations: Given malrotated torso and small abdomen concern for coiling of feeding tube in stomach. No feeding tube at this time; if frequent admissions for similar complaints will need evaluation for possible PEJ. Hypernatremia: Admitted with Na of 151, dark urine, poor fluid intake. Received D5 1/2NSS for several hours, with repeat Na of 142. Fluids transitioned to LR at 60cc/hr. Repeat BMP in AM. Constipation: Chronic, BMs q3 days. CTAP with evidence of moderate amount of stool within colon. Started Dulcolax while admitted, to continue when discharged. Goal of one soft formed BM daily. Code Status: Conditional Code; no intubation, other interventions okay FEN: LR at 60cc/hr with KCl 20meq within DVT ppx: Heparin 5000u SQ q12h Dispo: Med/Surg (2) Hypernatremia: (3) Hypokalemia: (4) Constipation: (5) Nephrolithiasis: Admission and Anticipated Discharge Date Admission Date: August 02, 2021 Supervising Physician Co-Signing Physician Notes Attending attestation Pt seen and examined in concert with Dr. Carrillo. In agreement with the documented findings as noted in the resident documentation with any exceptions or additions as noted here. Results & Data Results & Data ([facility]) Vital Signs (Past 12 Hours) Vital Signs Temp Pulse Resp BP Pulse Ox 08/03/21 22:55 36.4 C L 62 24 132/84 97
[2021-08-04 08:41] LABS: BUN Creatinine Ratio 8.1 (10-20); Creatinine Clr Calc Pharmacy 46.7 ml/min; Est GFR (African American) 139.3 ml/min; Est GFR (Non-African American) 120.2 ml/min; Magnesium 1.7 mg/dl (1.7-2.4); Phosphorus 1.7 mg/dl (2.5-4.9); Potassium 4.3 mmol/L (3.5-5.1)
[2021-08-04] MEDS ORDERED: DOCUSATE SODIUM SYRUP 100 MG/10 ML UDC PO SCH (09:00)
[2021-08-04] MEDS: HEPARIN SOD 5,000 UNIT/0.5 ML VIAL SQ SCH (09:10)
[2021-08-04] MEDS: THIAMINE HCL 100 MG in SYRINGE 9 ML IV SCH (09:10)
--- NOTE | 2021-08-04 14:42 | Discharge Summary ---
Date of Service August 04, 2021 Admission HPI Per Admitting Provider 30 y/o F w/ cerebral palsy (nonverbal) and not other PMhx who presents for irritability x 1 week (mostly minimal appetite). This was worse on 07/31/21 (generally appeared uncomfortably. less energy, fussy). She has had chronic constipation issue, somewhat worsened as did not pass a large BM (passed 3 smaller BMs) even after dulcolax and saline enema. This was in contrast to past where patient had better success with these treatments. Patient is feeling better today. She was brought in today because of the week of persistent concerns mentioned above. Family had flu-like symptoms. Patient has not had covid vaccine. Per 08/02/21 PCP note, referred to outpatient GI for discussion of potential G tube in future should patient need it. Feeds via liquids only, mainly using bottled tube feed formulations. 2.5 lb wt loss in past year per mother. Cerebral palsy is stable, no recent seizures in years and not on any anticonvulsants. HPI limited by patient's baseline nonverbal status. Hx obtained from mother. Patient's covid test was negative. Admission Exam Per Admitting Provider General: Was sleeping initially, but is alert. NAD. HEENT: Atraumatic, normocephalic. EOMI Pulm: CTAB anteriorly. Limited exam, no obvious adventitious sounds posteriorly. Some transmitted upper airway mucous, heard at neck. -wheezes, -rales, -rhonchi. No respiratory distress. Cardiac: RRR, -mrg. No LE edema. Abdominal: Nondistended, soft. She did wince briefly when palpating RLQ. No TTP on repeat exam. +BS. No R CVA ttp. Integ: Warm, dry, intact. Principal Diagnosis Malnutrition, constipation Discharge Exam Constitutional WD/WN, vitals as above Respiratory normal respiratory effort, lungs clear to auscultation Cardiovascular RRR, no murmur, no edema Gastrointestinal (Abdomen) normal bowel sounds, soft, nontender, no hepatosplenomegaly Skin no rashes, warm and dry Discharge Data Allergies Allergy/AdvReac Type Severity Reaction Status Date / Time No Known Allergies Allergy Verified 08/02/21 15:38 Consultations 08/03/21 00:47 Consult Gastroenterology Routine Ordered Studies 08/02/21 17:49 CT abd pelvis wo con Stat Hospital Course (1) Malnutrition: 30 yo F Hx cerebral palsy, chronic malnutrition, constipation admitted for increased irritability and concern for worsening nutritional status. Malnutrition -Chronic issue, with chiefly liquid calories at home. -Came in using Reduce Data 1-1.5 cartons/day with 1 homemade milkshake. -Dietary adjusted to Reduce Data 2 cartons/day (total 660kcal, 32g protein, 10g fiber), plus prune juice (4oz in 4oz water with homemade honey/maple syrup) for thickening. -GI consulted: * Given malrotated torso and small abdomen concern for coiling of feeding tube in stomach * No feeding tube at this time; if frequent admissions for similar complaints will need evaluation for possible PEJ. Hypernatremia -Admitted with Na of 151, dark urine, poor fluid intake. -Received D5 1/2NSS for several hours, with repeat Na of 142. Fluids transitioned to LR at 60cc/hr. -Sodium improved to 142 post discharge Constipation -Chronic, BMs q3 days. -CTAP with evidence of moderate amount of stool within colon. -Started Dulcolax while admitted, continued on discharge -Full regimen: Colace 100 mg twice daily, Dulcolax 10 mg WV daily as needed for constipation (2) Hypernatremia: (3) Hypokalemia: (4) Constipation: (5) Nephrolithiasis: Total Time Total Time Spent Total Time Spent (In Minutes): >30 Discharge Plan Discharge Items Patient Disposition: Home - Self-Care Reason For Visit: FAILURE TO THRIVE, CONSTIPATION Discharge Diagnosis: constipation, high sodium, decreased oral intake Activity: Per Instructions section Non-emergency contact: Primary Care Provider Call non-emergency contact if: you have any medication questions and your pain is not controlled Follow-up/Referrals: Claudia Fair PA-C [Primary Care Provider] - 08/07/21 1:30 pm Diet: Full liquid Addtl Attending Provider Instructions: Aletha was admitted to the hospital for fussiness and suspicion of belly pain. She was found to have a high sodium level, and looked dehydrated, signs that she was having a hard time taking in enough fluids at home. Our GI doctors saw her, and recommended continuing to try nutrition supplements for her diet, rather than p utting in a food tube. The tooler changed her supplement type to get her more calories. Aletha started feeling more well and she was able to be discharged home with the following recommendations: 1) Please continue using Reduce Data 2 cartons per day for her feeds. You can use your homemade maple syrup and homemade honey to nicky things and thicken them. You can also give her extra things such as ice cream and other liquid foods as she wants them. 2) Please start adding prune juice (4 ounces) with 4 ounces of water to her diet daily to help keep her bowels moving. Aletha's goal is one soft formed bowel movement a day. 3) You can start using Colace syrup (over the counter medicine) twice daily on a scheduled basis to also keep her bowels moving. 4) If her bowels are still not moving with prune juice and Colace, you can use Dulcolax suppositories once a day as needed to soften Aletha's stools. 5) If Aletha is still not having daily bowel movements, you can then add Miralax, 1 scoop every 12 hours as needed for constipation. You can increase the amount of scoops you use until she has a bowel movement. 6) Please call Aletha's primary care doctor to schedule her an appointment within a week of discharge to check on Aletha and make sure she is continuing to do well. If you have concern about Aletha like you did when you came into the ER, or Aletha looks dehydrated or upset, please seek urgent medical care at your discretion. Pending Studies at Discharge: No Stand-Alone Forms: My [facility] [employer], Smoking Cessation Medications and DC Order Prescriptions: New docusate sodium 60 mg/15 mL Syrup 100 mg PO BID 30 Days Qty: 1500 RF: 0 bisacodyl [Dulcolax (bisacodyl)] 10 mg suppository 10 mg WV DAILY PRN (Reason: constipation) Qty: 12 RF: 0 Continued (DME) Wheelchair (Manual) Device See Rx Instructions .Route Qty: 1 RF: 0 multivitamin [Daily Multi-Vitamin] tablet 1 tab PO DAILY RF: 0 Discharge Orders: Discharge Order (Routine); Ordered 08/04/21 Ordered By: Molly Brenner Admission Data Admit Date/Time: 08/02/21 23:38 Attending Provider: Ghanshyam Kirk Admit Provider: Semaj Hicks Primary Care Provider: Claudia Fair Other Providers: Seven Zuñiga Other Interventions: Discharge Summary Assessment (RN) Last Done: 08/04/21 14:16 Supervising Physician Co-Signing Physician Notes Attending attestation Pt seen and examined in concert with Dr. Carrillo. In agreement with the documented findings as noted in the resident documentation with any exceptions or additions as noted here. Resting comfortably in chair with mother at bedside providing history. Improved behavior approaching baseline with improved POI. 2 good bowel movements yesterday with decreased sx of discomfort. No further appearance of pain per mother. On examination, S1/S2 nl RRR no MCG. CTAB. Abd NT/ND BS+ve Constipation - significantly improved and tolerating bowel regimen well. COunseling provided at bedside for use of bowel regimen going forward including escalated regimen to include suppository if needed and appropriate bowel frequency. Malnutrition with hyponatremia - significantly improved with updated dietary regimen. Continue with same. Else see resident documentation as noted. Total time spent on this patients case on the day of discharge: 35 minutes. Resident Activity Tracking Resident Involvement: Resident Care Provided Care Provided: Adult Hospital Medicine
== END 2021-08-04 15:32 | disposition home or self-care (01) | DRG 641 ==
LOC: ED 14:38 → 3W 23:38 → SUATTDRO 23:38 → 3W 08-03 00:23